=== PATIENT | female | born 1945 | race Caucasian/White ===

== ENCOUNTER 2022-09-24 00:16 | Inpatient (IN) | payer OTHER ==
[2022-09-24] MEDS ORDERED: Lidocaine 1% PF 5 ML VIAL ONE ×2 (00:48→07:46)
[2022-09-24 01:10] LABS: #Eosinphils 0.2 thou/uL (0.0-0.7); #Lymphocytes 1.3 thou/uL (1.20-3.40); #Monocytes 0.7 thou/uL (0.11-0.59); #Neutrophils 6.4 thou/uL (1.40-6.50); %Basophils 0.6 % (0.0-1.0); %Eosinophils 1.9 % (0.0-10.0); %Lymphocytes 15.4 % (21.0-51.0); %Monocytes 7.6 % (0.0-10.0); %Neutrophils 74.5 % (42.0-75.0); Hemoglobin 15.5 g/dL (12.0-16.0); Mean Corpuscular Hemoglobin 32.5 pg (27.0-31.0); Mean Corpuscular Volume 92.9 fl (78.0-98.0); Mean Platelet Volume 8.6 fL (7.4-10.4); Platelet Count 170 10x3/uL (130-400); RBC Distribution Width 11.8 % (11.5-14.5); Red Blood Cell (RBC) Count 4.76 mill/uL (4.20-5.40); White Blood Cell (WBC) Count 8.6 10x3/uL (4.8-10.8)
[2022-09-24 01:31] LABS: ALT (SGPT) 23 U/L (8-55); AST (SGOT) 24 U/L (5-34); Alkaline Phosphatase 69 U/L (40-110); Anion Gap 14 mmol/L (10-20); BUN (Urea Nitrogen) 19 mg/dL (9.8-20.1); Bilirubin, Total 1.5 mg/dL (0.2-1.2); Calc. Creatinine Clearance 0 mL/min (70-130); Calcium 9.1 mg/dL (7.8-10.44); Carbon Dioxide 23 mmol/L (23-31); Chloride 105 mmol/L (98-107); Estimated GFR 70; Globulin 2.3 g/dL (2.4-3.5); Glucose 111 mg/dL (83-110); Potassium 3.2 mmol/L (3.5-5.1); Protein, Total 6.3 g/dL (5.8-8.1); Sodium 139 mmol/L (136-145)
[2022-09-24] MEDS ORDERED: levETIRAcetam in NS 1,000 MG in Premix Bag 1 BAG IVPB ONE (01:32)
[2022-09-24] MEDS ORDERED: levETIRAcetam 500 MG/5 ML VIAL SLOW IVP SCH (01:45)
[2022-09-24] MEDS ORDERED: Dextrose 5% in Water 1,000 ML IV PRN (01:54)
[2022-09-24] MEDS ORDERED: Acetaminophen 325 MG TAB PO PRN ×2 (01:54→02:00)
[2022-09-24] MEDS ORDERED: TETANUS, DIPHTHERIA TOX,ADULT (TDVAX) 0.5 ML VIAL IM ONE (01:54)
[2022-09-24] MEDS ORDERED: Dextrose 50% Abboject 50 ML SYRINGE SLOW IVP PRN (01:54)
[2022-09-24] MEDS ORDERED: Ondansetron ODT 4 MG TAB PO PRN (01:54)
[2022-09-24] MEDS ORDERED: Ipratropium/Albuterol 3 ML NEB NEB PRN (01:54)
[2022-09-24] MEDS ORDERED: Ondansetron PF 4 MG/2 ML Vial IVP PRN (01:54)
[2022-09-24 02:08] LABS: Magnesium 2.3 mg/dL (1.6-2.6); Phosphorus 3.1 mg/dL (2.3-4.7)
[2022-09-24 03:29] VITALS: BMI 22.9
[2022-09-24] MEDS: Sodium Chloride 0.9% 1,000 ML IV SCH ×2 (03:49→15:30)
[2022-09-24] MEDS: hydrALAZINE 20 MG/ML VIAL SLOW IVP PRN ×3 (04:28→18:34)
[2022-09-24 06:22] LABS: Bacteria/HPF None Seen HPF (None Seen); Bilirubin Negative (Negative); Blood, Urine Trace (Negative); Clarity Clear (Clear); Glucose, Urine (Dipstick) Normal (Negative); Ketone, Urine Negative (Negative); Leukocyte Negative Leu/uL (Negative); Nitrite Negative (Negative); Protein, Urine (Dipstick) Negative (Neg-Trace); RBC/HPF 0-3 HPF (0-3); Squamous Epithelial None Seen HPF (0-3); WBC/HPF 0-3 HPF (0-3); pH, Urine 6.5 (5.0-9.0)
[2022-09-24 06:23] LABS: Specific Gravity, Urine 1.047 (1.002-1.036)
[2022-09-24] MEDS ORDERED: EPINEPHrine 1 MG/ML AMP ONE ×2 (06:48→08:08)
[2022-09-24] MEDS ORDERED: Lidocaine 1% (PF) 30 ML VIAL ONE ×2 (06:48→08:08)
[2022-09-24] MEDS ORDERED: fentaNYL 50 mcg/mL 1 mL Vial ONE (06:58)
[2022-09-24] MEDS ORDERED: SUGAMMADEX SODIUM 200 MG/2 ML VIAL ONE (06:58)
[2022-09-24] MEDS ORDERED: Famotidine/PF 20 mg/2ml Vial ONE (06:59)
[2022-09-24] MEDS ORDERED: Phenylephrine 10 MG/ML VIAL ONE (07:46)
[2022-09-24] MEDS ORDERED: Rocuronium Bromide 10 MG/ML (10ML VIAL) ONE (07:46)
[2022-09-24] MEDS ORDERED: ePHEDrine Sulfate 50 MG/10 ML VIAL ONE (07:46)
[2022-09-24] MEDS ORDERED: PROPOFOL 200 MG/20 ML VIAL ONE (07:46)
[2022-09-24] MEDS ORDERED: Dexamethasone 20 MG/5 ML VIAL ONE (07:46)
[2022-09-24] MEDS ORDERED: Ondansetron PF 4 MG/2 ML Vial ONE (07:46)
[2022-09-24] MEDS ORDERED: Thrombin 5000 UNITS/5 ML VIAL ONE (08:03)
[2022-09-24] MEDS ORDERED: Bacitracin Zinc Ointment 30 gm TUBE ONE (08:04)
[2022-09-24] MEDS ORDERED: Neomycin-Polymyxin 1 ML AMP ONE (09:47)
[2022-09-24] MEDS: Famotidine/PF 20 mg/2ml Vial SLOW IVP SCH ×2 (10:17→21:55)
[2022-09-24] MEDS: Metoprolol Tartrate 50 MG TAB PO SCH (10:29)
[2022-09-24] MEDS ORDERED: niCARdipine 25 MG in Sodium Chloride 0.9% 250 ML 250 ML IVPB SCH (13:00)
[2022-09-24] MEDS: CEFAZOLIN 2 GM in Sodium Chloride 0.9% 100 ML IVPB SCH ×3 (13:32→21:54)
[2022-09-24] MEDS ORDERED: Rivastigmine 4.6mg/24 Hour PATCH TD SCH (21:00)
[2022-09-24] MEDS: Rivastigmine 4.6mg/24 Hour PATCH TD SCH (21:58)
[2022-09-25] MEDS: Sodium Chloride 0.9% 1,000 ML IV SCH (00:56)
[2022-09-25] MEDS: Morphine 2 MG/ML VIAL SLOW IVP PRN ×3 (03:25→20:53)
[2022-09-25 05:12] LABS: #Monocytes 0.9 thou/uL (0.11-0.59); #Neutrophils 11.1 thou/uL (1.40-6.50); %Eosinophils 0.1 % (0.0-10.0); %Lymphocytes 7.3 % (21.0-51.0); %Monocytes 6.7 % (0.0-10.0); %Neutrophils 85.9 % (42.0-75.0); Hemoglobin 14.4 g/dL (12.0-16.0); Mean Corpuscular HGB CONC 33.5 g/dL (32.0-36.0); Mean Corpuscular Hemoglobin 31.3 pg (27.0-31.0); Mean Corpuscular Volume 93.4 fl (78.0-98.0); Mean Platelet Volume 8.5 fL (7.4-10.4); Platelet Count 182 10x3/uL (130-400)
[2022-09-25 05:29] LABS: Anion Gap 14 mmol/L (10-20); BUN (Urea Nitrogen) 17 mg/dL (9.8-20.1); Calc. Creatinine Clearance 58 mL/min (70-130); Calcium 8.5 mg/dL (7.8-10.44); Carbon Dioxide 19 mmol/L (23-31); Chloride 111 mmol/L (98-107); Estimated GFR 71; Glucose 119 mg/dL (83-110); Magnesium 2.1 mg/dL (1.6-2.6); Sodium 141 mmol/L (136-145)
[2022-09-25 05:33] LABS: Phosphorus 2.5 mg/dL (2.3-4.7)
[2022-09-25] MEDS: CEFAZOLIN 2 GM in Sodium Chloride 0.9% 100 ML IVPB SCH ×6 (06:18→21:02)
[2022-09-25] MEDS: Metoprolol Tartrate 50 MG TAB PO SCH (08:15)
[2022-09-25] MEDS: Famotidine/PF 20 mg/2ml Vial SLOW IVP SCH ×2 (08:15→20:53)
[2022-09-25] MEDS ORDERED: Haloperidol Lactate 5 MG/ML VIAL SLOW IVP SCH (18:15)
[2022-09-25] MEDS: Rivastigmine 4.6mg/24 Hour PATCH TD SCH (20:58)
[2022-09-25] MEDS: hydrALAZINE 20 MG/ML VIAL SLOW IVP PRN (21:40)
[2022-09-25] MEDS ORDERED: diphenhydrAMINE 50 MG/ML VIAL IM SCH (22:15)
[2022-09-26] MEDS: hydrALAZINE 20 MG/ML VIAL SLOW IVP PRN ×2 (05:58→17:38)
[2022-09-26] MEDS: CEFAZOLIN 2 GM in Sodium Chloride 0.9% 100 ML IVPB SCH ×2 (05:58→16:44)
[2022-09-26 07:57] LABS: #Eosinphils 0.1 thou/uL (0.0-0.7); #Monocytes 0.6 thou/uL (0.11-0.59); #Neutrophils 7.4 thou/uL (1.40-6.50); %Basophils 0.3 % (0.0-1.0); %Eosinophils 0.7 % (0.0-10.0); %Lymphocytes 11.1 % (21.0-51.0); %Neutrophils 80.9 % (42.0-75.0); Hemoglobin 14.8 g/dL (12.0-16.0); Mean Corpuscular HGB CONC 31.3 g/dL (32.0-36.0); Mean Corpuscular Hemoglobin 29.6 pg (27.0-31.0); Mean Corpuscular Volume 94.6 fl (78.0-98.0); Mean Platelet Volume 8.9 fL (7.4-10.4); Platelet Count 213 10x3/uL (130-400); RBC Distribution Width 12.2 % (11.5-14.5); Red Blood Cell (RBC) Count 5.01 mill/uL (4.20-5.40); White Blood Cell (WBC) Count 9.1 10x3/uL (4.8-10.8)
[2022-09-26 08:24] LABS: Anion Gap 13 mmol/L (10-20); BUN (Urea Nitrogen) 12 mg/dL (9.8-20.1); Calc. Creatinine Clearance 60 mL/min (70-130); Calcium 8.5 mg/dL (7.8-10.44); Carbon Dioxide 19 mmol/L (23-31); Chloride 110 mmol/L (98-107); Estimated GFR 72; Glucose 105 mg/dL (83-110); Phosphorus 1.5 mg/dL (2.3-4.7); Potassium 3.1 mmol/L (3.5-5.1); Sodium 139 mmol/L (136-145)
[2022-09-26] MEDS ORDERED: Potassium Phosphate 30 MMOL in Sodium Chloride 0.9% 250 ML 250 ML IVPB SCH (10:00)
[2022-09-26] MEDS: Famotidine/PF 20 mg/2ml Vial SLOW IVP SCH ×2 (10:10→20:30)
[2022-09-26] MEDS: Metoprolol Tartrate 50 MG TAB PO SCH (10:19)
[2022-09-26] MEDS: QUEtiapine 25 MG TAB PO SCH (20:30)
[2022-09-26] MEDS: Rivastigmine 4.6mg/24 Hour PATCH TD SCH (20:30)
[2022-09-27 05:03] LABS: Anion Gap 15 mmol/L (10-20); BUN (Urea Nitrogen) 25 mg/dL (9.8-20.1); Calc. Creatinine Clearance 39 mL/min (70-130); Calcium 7.8 mg/dL (7.8-10.44); Carbon Dioxide 29 mmol/L (23-31); Chloride 106 mmol/L (98-107); Estimated GFR 43; Glucose 136 mg/dL (83-110); Magnesium 1.9 mg/dL (1.6-2.6); Phosphorus 2.9 mg/dL (2.3-4.7); Potassium 3.6 mmol/L (3.5-5.1); Sodium 146 mmol/L (136-145)
[2022-09-27] MEDS ORDERED: Sodium Chloride 0.9% 1,000 ML IV SCH (08:00)
[2022-09-27] MEDS: Metoprolol Tartrate 50 MG TAB PO SCH (08:50)
[2022-09-27] MEDS ORDERED: Potassium Phosphate 15 MMOL in Sodium Chloride 0.9% 250 ML 250 ML IVPB SCH (09:00)
[2022-09-27] MEDS ORDERED: Famotidine/PF 20 mg/2ml Vial SLOW IVP SCH (09:00)
[2022-09-27] MEDS: Rivastigmine 4.6mg/24 Hour PATCH TD SCH (22:04)
[2022-09-27] MEDS: QUEtiapine 25 MG TAB PO SCH (22:05)
[2022-09-27] MEDS: hydrALAZINE 20 MG/ML VIAL SLOW IVP PRN (22:05)
[2022-09-28 06:46] LABS: Anion Gap 10 mmol/L (10-20); BUN (Urea Nitrogen) 16 mg/dL (9.8-20.1); Calc. Creatinine Clearance 79 mL/min (70-130); Calcium 8.1 mg/dL (7.8-10.44); Carbon Dioxide 22 mmol/L (23-31); Chloride 111 mmol/L (98-107); Estimated GFR 89; Glucose 104 mg/dL (83-110); Magnesium 2.1 mg/dL (1.6-2.6); Phosphorus 2.3 mg/dL (2.3-4.7); Potassium 3.7 mmol/L (3.5-5.1); Sodium 139 mmol/L (136-145)
[2022-09-28] MEDS: Metoprolol Tartrate 50 MG TAB PO SCH (09:38)
[2022-09-28] MEDS: hydrALAZINE 20 MG/ML VIAL SLOW IVP PRN (17:24)
[2022-09-28] MEDS: QUEtiapine 25 MG TAB PO SCH (20:31)
[2022-09-28] MEDS: Rivastigmine 4.6mg/24 Hour PATCH TD SCH (20:35)
[2022-09-28] MEDS ORDERED: Amlodipine 5 MG TAB PO SCH (21:00)
[2022-09-29] MEDS: Metoprolol Tartrate 50 MG TAB PO SCH (08:05)
[2022-09-29 11:33] VITALS: TEMP 97.5
[2022-09-29 13:53] VITALS: BP 143/79
== END 2022-09-29 13:47 | disposition home or self-care (01) | DRG 27 ==
LOC: ERS 00:16 → CCU 01:40 → SJJU 09-26 21:58
PROVIDERS: ADMIT Surgery; ATTEND Surgery
PROC: 009430Z Drainage of Intracranial Subdural Space with Drainage Device, Percutaneous Approach (ICD-10-PCS; principal; 2022-09-24)
PROC: 009430Z Drainage of Intracranial Subdural Space with Drainage Device, Percutaneous Approach (ICD-10-PCS; 2022-09-24)
PROC: 0HQ0XZZ Repair Scalp Skin, External Approach (ICD-10-PCS; 2022-09-24)
PROC: 3E033XZ Introduction of Vasopressor into Peripheral Vein, Percutaneous Approach (ICD-10-PCS; 2022-09-24)
DX: S06.5XAA Traumatic subdural hemorrhage with loss of consciousness status unknown, initial encounter (principal); F03.90 Unspecified dementia, unspecified severity, without behavioral disturbance, psychotic disturbance, mood disturbance, and anxiety; I10 Essential (primary) hypertension; S01.01XA Laceration without foreign body of scalp, initial encounter; W19.XXXA Unspecified fall, initial encounter; Y92.89 Other specified places as the place of occurrence of the external cause; Z90.49 Acquired absence of other specified parts of digestive tract; E87.6 Hypokalemia
CPT/HCPCS: 36415; 36416; 70450; 80048; 80053; 81001; 83735; 84100; 85025; 85610; 85730; 86850; 86900; 86901; 93005; G0390; J0171; J0360; J1100; J1200; J1630; J1953; J2001; J2272; J2370; J2405; J2704; J3010; J3490; J7030; J7050; S0028